=== PATIENT | male | born 1955 | race Two or more races ===

== ENCOUNTER 2017-10-30 00:50 | Inpatient (IN) | payer OTHER ==
[2017-10-30] VITALS (7 sets, daily range): BP systolic 103–127; BP diastolic 68–80
[~2017-10-30] VITALS: Ht 175.3 cm; Wt 136.5 kg
[2017-10-30] MEDS ORDERED: Meclizine 25mg tab ORAL ONE (01:00)
[2017-10-30] MEDS ORDERED: Aspirin Baby 81mg ORAL ONE (02:30)
[2017-10-30 03:06] LABS: BASOPHILS % (AUTO) 0.7 % (0.0-2.0); EOSINOPHILS % (AUTO) 1.6 % (0.0-3.0); HEMATOCRIT 44.6 % (42.0-52.0); LYMPHOCYTES % (AUTO) 14.5 % (20.0-45.0); MEAN CORPUSCULAR VOLUME 90 FL (80-99); MONOCYTES % (AUTO) 4.2 % (1.0-10.0); PLATELET COUNT 207 K/UL (150-450); RED BLOOD COUNT 4.96 M/UL (4.70-6.10); RED CELL DISTRIBUTION WIDTH 11.4 % (11.6-14.8); WHITE BLOOD COUNT 9.7 K/UL (4.8-10.8)
[2017-10-30 03:09] LABS: APPEARANCE,URINE CLEAR; BILIRUBIN, URINE NEGATIVE (NEGATIVE); GLUCOSE, URINE (UA) 4+ (NEGATIVE); KETONES,URINE 2+ (NEGATIVE); LEUKOCYTE ESTERASE ,URINE 1+ (NEGATIVE); NITRITE,URINE NEGATIVE (NEGATIVE); PH,URINE 5 (4.5-8.0); PROTEIN,URINE 2+ (NEGATIVE); UROBILINOGEN,URINE NORMAL MG/DL (0.0-1.0)
[2017-10-30 03:23] LABS: ANION GAP 8 mmol/L (5-15); BLOOD UREA NITROGEN 15 mg/dL (7-18); CALCIUM 9.2 MG/DL (8.5-10.1); CARBON DIOXIDE 27 MMOL/L (21-32); CHLORIDE 102 MMOL/L (98-107); POTASSIUM 4.5 MMOL/L (3.5-5.1); SODIUM 137 MMOL/L (136-145)
[2017-10-30 03:34] LABS: COLOR,URINE YELLOW
[2017-10-30 03:36] LABS: ALANINE AMINOTRANSFERASE 41 U/L (12-78); ALBUMIN 3.5 G/DL (3.4-5.0); ALBUMIN/GLOBULIN RATIO 0.8 (1.0-2.7); ALKALINE PHOSPHATASE 88 U/L (46-116); ASPARTATE AMINO TRANSFERASE 28 U/L (15-37); BILIRUBIN,TOTAL 0.4 MG/DL (0.2-1.0)
--- NOTE | 2017-10-30 04:58 | Emergency Room Report ---
History of Present Illness General Chief Complaint: Dizziness Source: Patient Present Illness HPI The patient is a 62-year-old male who presented after increased dizziness as well as spinning sensation. Patient reports having increased sense of movement which he describes as a moving worse with movements. The patient denies any difficulty with speech. He any numbness or tingling. Patient prior history of diabetes. He had previously taken meclizine without any improvement prior to arrival. The patient was brought in by EMS. He was noted to be severely nauseated. Patient stated he had episodes in the past however this was worse. Allergies: Coded Allergies: No Known Allergies (Unverified , 10/30/17) Patient History Past Medical History: see triage record Reviewed Nursing Documentation: PMH: Agreed; PSxH: Agreed Review of Systems All Other Systems: negative except mentioned in HPI Physical Exam Vital Signs Date Time Temp Pulse Resp B/P (MAP) Pulse Ox O2 Delivery O2 Flow Rate FiO2 10/30/17 00:51 98.1 79 18 142/80 98 Room Air 98.1 Sp02 EP Interpretation: reviewed, normal General Appearance: normal inspection, well appearing, no apparent distress, alert, GCS 15 Head: atraumatic ENT: normal ENT inspection, hearing grossly normal, normal voice Neck: normal inspection, full range of motion, supple, no bony tend Respiratory: normal inspection, lungs clear, normal breath sounds, no respiratory distress, no retraction, no wheezing Cardiovascular #1: regular rate, rhythm, no edema Gastrointestinal: normal inspection, normal bowel sounds, non tender, soft, no guarding, no hernia Genitourinary: no CVA tenderness Musculoskeletal: normal inspection, back normal, normal range of motion Neurologic: normal inspection, alert, oriented x3, responsive, 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 Differential diagnosis included was not limited to CVA, vertebrobasilar insufficiency, myocardial infarction, benign positional vertigo, labyrinthitis, aspirin overdose among others. Because of complexity of patient's case laboratory testing and imaging studies were ordered. The patient was given IV Zofran with some improvement in his nausea however patient continued to be having vertiginous sensation after meclizine. A CT of the head read by radiology showed no evidence of acute CVA. The patient was given aspirin due to the right-sided passpointing. The patient was noted to have continued unsteadiness. The patient will be admitted for further evaluation of the dizziness.Dr. Christopher Milelr was contacted for inpatient management due to panel physician Labs Test 10/30/17 02:40 10/30/17 02:52 White Blood Count 9.7 K/UL (4.8-10.8) Red Blood Count 4.96 M/UL (4.70-6.10) Hemoglobin 15.0 G/DL (14.2-18.0) Hematocrit 44.6 % (42.0-52.0) Mean Corpuscular Volume 90 FL (80-99) Mean Corpuscular Hemoglobin 30.3 PG (27.0-31.0) Mean Corpuscular Hemoglobin Concent 33.7 G/DL (32.0-36.0) Red Cell Distribution Width 11.4 % (11.6-14.8) Platelet Count 207 K/UL (150-450) Mean Platelet Volume 8.6 FL (6.5-10.1) Neutrophils (%) (Auto) 79.0 % (45.0-75.0) Lymphocytes (%) (Auto) 14.5 % (20.0-45.0) Monocytes (%) (Auto) 4.2 % (1.0-10.0) Eosinophils (%) (Auto) 1.6 % (0.0-3.0) Basophils (%) (Auto) 0.7 % (0.0-2.0) Sodium Level 137 MMOL/L (136-145) Potassium Level 4.5 MMOL/L (3.5-5.1) Chloride Level 102 MMOL/L (98-107) Carbon Dioxide Level 27 MMOL/L (21-32) Anion Gap 8 mmol/L (5-15) Blood Urea Nitrogen 15 mg/dL (7-18) Creatinine 1.0 MG/DL (0.55-1.30) Estimat Glomerular Filtration Rate > 60 mL/min (>60) Glucose Level 294 MG/DL (74-106) Calcium Level 9.2 MG/DL (8.5-10.1) Total Bilirubin 0.4 MG/DL (0.2-1.0) Aspartate Amino Transf (AST/SGOT) 28 U/L (15-37) Alanine Aminotransferase (ALT/SGPT) 41 U/L (12-78) Alkaline Phosphatase 88 U/L (46-116) Troponin I 0.000 ng/mL (0.000-0.056) Total Protein 8.0 G/DL (6.4-8.2) Albumin 3.5 G/DL (3.4-5.0) Globulin 4.5 g/dL Albumin/Globulin Ratio 0.8 (1.0-2.7) Thyroid Stimulating Hormone (TSH) 2.349 uiU/mL (0.358-3.740) Urine Color Yellow Urine Appearance Clear Urine pH 5 (4.5-8.0) Urine Specific [place] 1.030 (1.005-1.035) Urine Protein 2+ (NEGATIVE) Urine Glucose (UA) 4+ (NEGATIVE) Urine Ketones 2+ (NEGATIVE) Urine Occult Blood Negative (NEGATIVE) Urine Nitrite Negative (NEGATIVE) Urine Bilirubin Negative (NEGATIVE) Urine Urobilinogen Normal MG/DL (0.0-1.0) Urine Leukocyte Esterase 1+ (NEGATIVE) Urine RBC 0 /HPF (0 - 0) Urine WBC 2-4 /HPF (0 - 0) Urine Squamous Epithelial Cells Few /LPF (NONE/OCC) Urine Bacteria Few /HPF (NONE) Last Vital Signs Date Time Temp Pulse Resp B/P (MAP) Pulse Ox O2 Delivery O2 Flow Rate FiO2 10/30/17 00:51 98.1 79 18 142/80 98 Room Air 98.1 Status: unchanged Disposition: ADMITTED INPATIENT Condition: Serious Scripts Unable to Obtain Active Prescriptions or Reported Meds Departure Forms: Return to Work Return to Work in (Days): 1 Mg Carpenter MD Oct 30, 2017 04:58
[2017-10-30] MEDS ORDERED: Albuterol/Ipratropium 3ml neb HHN PRN (07:30)
[2017-10-30] MEDS ORDERED: Promethazine/Codeine 5ml UD ORAL PRN (07:30)
[2017-10-30] MEDS ORDERED: Nitroglycerin Subl 0.4mg tab SL PRN (07:30)
[2017-10-30] MEDS ORDERED: Mylanta II UD 30ml ORAL PRN (07:30)
[2017-10-30] MEDS ORDERED: Miralax 17gm pkt ORAL PRN (07:30)
[2017-10-30] MEDS ORDERED: LORazepam Inj 2mg/ml 1ml IV PRN (07:30)
--- NOTE | 2017-10-30 09:23 | Diagnostic Imaging Report ---
Indication: Dizziness Technique: Contiguous 5 mm thick transaxial imaging of the head obtained in a Siemens Sensation [address] scanner. Soft tissue and bone windows generated. Automatic Exposure Control was utilized. Total Dose length Product (DLP): 1362.[address] Dose Index Volume (CTDIvol): 70.38 mGy Comparison: none Findings: The size and configuration of the cortical sulci, basal cisterns, and ventricles are within normal limits for age. There is no mass effect, midline shift, or edema identified. There is no evidence of acute hemorrhage or abnormal intra-axial or extra-axial fluid collections. The bones and soft tissues are unremarkable. Impression: No mass effect, edema or acute bleed. [facility] has communicated the preliminary results to the Emergency Department. Their findings are largely concordant with this report. The CT scanner at [facility] is accredited by the [employer] and the scans are performed using dose optimization techniques as appropriate to a performed exam including Automatic Exposure control.
[2017-10-30] MEDS: D5 1/2NS 1,000 ML IV SCH (10:00)
[2017-10-30] MEDS: Heparin 5000 units/ml inj SUBQ SCH ×2 (10:02→22:08)
--- NOTE | 2017-10-30 13:20 | Consultation ---
History of Present Illness General Date patient seen: Oct 30, 2017 Chief Complaint: Dizziness Present Illness HPI 62-year-old male with hx of diabetes presented after increased dizziness as well as spinning sensation. Patient reports having increased sense of movement which he describes as a moving worse with movements. The patient denies any difficulty with speech. He had previously taken meclizine without any improvement prior to arrival. The patient was brought in by EMS. He was noted to be severely nauseated. Allergies: Coded Allergies: No Known Allergies (Unverified , 10/30/17) Medication History Unable to Obtain Active Prescriptions or Reported Meds Patient History Healthcare decision maker Resuscitation status Advanced Directive on File Past Medical/Surgical History Past Medical/Surgical History: (1) Diabetes Review of Systems All Other Systems: negative except mentioned in HPI Physical Exam General Appearance: WD/WN, no apparent distress Lines, tubes and drains: peripheral HEENT: normocephalic, atraumatic Neck: non-tender, normal alignment Respiratory/Chest: chest wall non-tender, lungs clear Breasts: no masses Cardiovascular/Chest: normal peripheral pulses, no JVD Abdomen: normal bowel sounds Last 24 Hour Vital Signs Date Time Temp Pulse Resp B/P (MAP) Pulse Ox O2 Delivery O2 Flow Rate FiO2 10/30/17 09:47 75 20 Room Air 21 10/30/17 06:30 97.2 69 20 117/80 96 Room Air 97.2 10/30/17 06:00 98.2 68 23 103/69 97 Room Air 98.2 10/30/17 05:30 98.2 68 23 103/69 97 Room Air 98.2 10/30/17 04:56 98.2 69 16 110/71 98 Room Air 98.2 10/30/17 00:51 98.1 79 18 142/80 98 Room Air 98.1 Intake and Output 10/29/17 10/30/17 19:00 07:00 Intake Total 60 ml Balance 60 ml Intake Oral 60 ml # Voids 1 # Bowel Movements 1 Laboratory Tests Test 10/30/17 02:40 10/30/17 02:52 White Blood Count 9.7 K/UL (4.8-10.8) Red Blood Count 4.96 M/UL (4.70-6.10) Hemoglobin 15.0 G/DL (14.2-18.0) Hematocrit 44.6 % (42.0-52.0) Mean Corpuscular Volume 90 FL (80-99) Mean Corpuscular Hemoglobin 30.3 PG (27.0-31.0) Mean Corpuscular Hemoglobin Concent 33.7 G/DL (32.0-36.0) Red Cell Distribution Width 11.4 % (11.6-14.8) L Platelet Count 207 K/UL (150-450) Mean Platelet Volume 8.6 FL (6.5-10.1) Neutrophils (%) (Auto) 79.0 % (45.0-75.0) H Lymphocytes (%) (Auto) 14.5 % (20.0-45.0) L Monocytes (%) (Auto) 4.2 % (1.0-10.0) Eosinophils (%) (Auto) 1.6 % (0.0-3.0) Basophils (%) (Auto) 0.7 % (0.0-2.0) Sodium Level 137 MMOL/L (136-145) Potassium Level 4.5 MMOL/L (3.5-5.1) Chloride Level 102 MMOL/L (98-107) Carbon Dioxide Level 27 MMOL/L (21-32) Anion Gap 8 mmol/L (5-15) Blood Urea Nitrogen 15 mg/dL (7-18) Creatinine 1.0 MG/DL (0.55-1.30) Estimat Glomerular Filtration Rate > 60 mL/min (>60) Glucose Level 294 MG/DL (74-106) H Calcium Level 9.2 MG/DL (8.5-10.1) Total Bilirubin 0.4 MG/DL (0.2-1.0) Aspartate Amino Transf (AST/SGOT) 28 U/L (15-37) Alanine Aminotransferase (ALT/SGPT) 41 U/L (12-78) Alkaline Phosphatase 88 U/L (46-116) Troponin I 0.000 ng/mL (0.000-0.056) Total Protein 8.0 G/DL (6.4-8.2) Albumin 3.5 G/DL (3.4-5.0) Globulin 4.5 g/dL Albumin/Globulin Ratio 0.8 (1.0-2.7) L Thyroid Stimulating Hormone (TSH) 2.349 uiU/mL (0.358-3.740) Urine Color Yellow Urine Appearance Clear Urine pH 5 (4.5-8.0) Urine Specific [place] 1.030 (1.005-1.035) Urine Protein 2+ (NEGATIVE) H Urine Glucose (UA) 4+ (NEGATIVE) H Urine Ketones 2+ (NEGATIVE) H Urine Occult Blood Negative (NEGATIVE) Urine Nitrite Negative (NEGATIVE) Urine Bilirubin Negative (NEGATIVE) Urine Urobilinogen Normal MG/DL (0.0-1.0) Urine Leukocyte Esterase 1+ (NEGATIVE) H Urine RBC 0 /HPF (0 - 0) Urine WBC 2-4 /HPF (0 - 0) Urine Squamous Epithelial Cells Few /LPF (NONE/OCC) Urine Bacteria Few /HPF (NONE) Height (Feet): 5 Height (Inches): 9.00 Weight (Pounds): 240 Medications Current Medications Medications (Trade) Dose Ordered Sig/Uday Route PRN Reason Start Time Stop Time Status Last Admin Dose Admin Acetaminophen (Tylenol) 650 mg Q4H PRN ORAL fever 10/30/17 07:30 11/29/17 07:29 10/30/17 10:05 Al Hydroxide/Mg Hydroxide (Mylanta II) 30 ml Q6H PRN ORAL dyspepsia 10/30/17 07:30 11/29/17 07:29 Albuterol/ Ipratropium (Albuterol/ Ipratropium) 3 ml EVERY 4 HOURS PRN HHN Shortness of Breath 10/30/17 07:30 11/04/17 07:29 Clonidine HCl (Catapres Tab) 0.1 mg Q4H PRN ORAL For High Blood Pressure 10/30/17 07:30 11/29/17 07:29 Dextrose (Dextrose 50%) 25 ml STAT PRN IV BS 60-69mg/dl 10/30/17 07:45 11/29/17 07:44 Dextrose (Dextrose 50%) 50 ml STAT PRN IV BS less than 60mg/dl 10/30/17 07:30 11/29/17 07:29 Dextrose/Sodium Chloride 1,000 ml @ 50 mls/hr Q20H IV 10/30/17 07:30 11/29/17 07:29 10/30/17 10:00 Heparin Sodium (Porcine) (Heparin 5000 units/ml) 5,000 units EVERY 12 HOURS SUBQ 10/30/17 09:00 11/29/17 08:59 10/30/17 10:02 Lorazepam (Ativan 2mg/ml 1ml) 0.5 mg Q4H PRN IV For Anxiety 10/30/17 07:30 11/06/17 07:29 Meclizine HCl (Antivert) 25 mg Q6H PRN ORAL for dizziness 10/30/17 13:15 11/29/17 13:14 Nitroglycerin (Ntg) 0.4 mg Q5M X 3 DOSES PRN SL Prn Chest Pain 10/30/17 07:30 11/29/17 07:29 Ondansetron HCl (Zofran) 4 mg Q6H PRN IVP Nausea & Vomiting 10/30/17 07:30 11/29/17 07:29 Polyethylene Glycol (Miralax) 17 gm HSPRN PRN ORAL Constipation 10/30/17 07:30 11/29/17 07:29 Promethazine HCl/ Codeine (Phenergan with Codeine) 5 ml Q4H PRN ORAL For Cough 10/30/17 07:30 11/29/17 07:29 Temazepam (Restoril) 15 mg HSPRN PRN ORAL Insomnia 10/30/17 07:30 11/06/17 07:29 Assessment/Plan Problem List: (1) Ataxia ICD Codes: R27.0 - Ataxia, unspecified SNOMED: 02011036 (2) Diabetes ICD Codes: E11.9 - Type 2 diabetes mellitus without complications SNOMED: 78992505 Assessment/Plan close neuro monitoring resume Meclezine MRI brain, pt/ot siding scale diabetic diet. Cristian Mora MD Oct 30, 2017 13:20
[2017-10-30] MEDS: NovoLOG Insulin Flexpen SUBQ SCH ×2 (16:26→22:07)
--- NOTE | 2017-10-30 19:42 | Cardiology Report ---
APPROVED REPORT EXAM: Two-dimensional and M-mode echocardiogram with Doppler and color Doppler. INDICATION LV FUNCTION M-Mode DIMENSIONS IVSd1.5 (0.7-1.1cm)Left Atrium (MM)4.0 (1.6-4.0cm) LVDd5.6 (3.5-5.6cm)Aortic Root3.5 (2.0-3.7cm) PWd1.7 (0.7-1.1cm)Aortic Cusp Exc.1.8 (1.5-2.0cm) IVSs1.8 cm LVDs3.6 (2.5-4.0cm) PWs2.1 cm Technically difficult study due to poor acoustical windows. Normal left ventricular chamber size,probably grossly normal systolic function and wall motion to extent visualized. Left ventricular ejection fraction estimated to be 50 %. No evidence of left ventricular hypertrophy. No evidence of pericardial effusion. All other cardiac chamber sizes are within normal limits. Mildly Focal aortic valve sclerosis with adequate cusp excursion. Mildly Thickened mitral valve leaflets with normal excursion. Mildly Mitral annulus and aortic root calcification. Pulmonic valve not well visualized. Normal tricuspid valve structure. IVC at normal size with physiologic collapse. This study is not adequte for exclusion of cardioembolism A color flow and spectral Doppler study was performed and revealed: No aortic regurgitation. Trace mitral regurgitation. Normal left ventricular diastolic function Mild tricuspid regurgitation. Tricuspid systolic velocities suggests peak right ventricular systolic pressure of 31 mmHg,consistent with mild pulmonary hypertension. No Pulmonic regurgitation present.
[2017-10-30] MEDS ORDERED: MELOXICAM7.5 MG PO (20:16)
[2017-10-30] MEDS ORDERED: OMEGA 3 1,0001 EACH PO (20:16)
[2017-10-30] MEDS ORDERED: METFORMIN HCL500 M1 ORAL (20:16)
[2017-10-30] MEDS ORDERED: LISINOPRIL10 MG ORAL (20:16)
[2017-10-30] MEDS ORDERED: MECLIZINE HCL25 MG ORAL (20:16)
[2017-10-30] MEDS ORDERED: TURMERIC 500 M1 EAC1 PO (20:16)
[2017-10-31] VITALS: BP 130/69
--- NOTE | 2017-10-31 01:30 | History and Physical Report ---
DATE OF ADMISSION: 10/30/2017 CONSULTANTS: 1. Hilton Daily M.D. 2. Cristian Mora M.D. 3. Donal Armando M.D. CHIEF COMPLAINT: Unsteady gait, vertigo and diabetes. BRIEF HISTORY: The patient is a 62-year-old male, who lives at home, presents with unsteady gait, vertigo, room spinning for 1 day, slight nausea, no vomiting, blood sugar in the ER was 294. The patient came, was admitted for above. Currently calm in bed, slightly weak. No complaint. PAST MEDICAL HISTORY: Arthritis, vertigo, and diabetes. PAST SURGICAL HISTORY: Right wrist. MEDICATIONS: Novolin, NovoLog, Antivert, heparin, ipratropium, Zofran, lorazepam, temazepam, dextrose, promethazine, aspirin, Zofran, and meclizine. ALLERGIES: Denies. SOCIAL HISTORY: No smoking. Occasional alcohol. No intravenous drug abuse. FAMILY HISTORY: Noncontributory. REVIEW OF SYSTEMS: No chest pain. Slight short of breath. Slight nausea. No vomiting. No diarrhea. PHYSICAL EXAMINATION: GENERAL: Calm in bed, oriented x3, in no acute distress. VITAL SIGNS: Temperature is 98 degrees, pulse 68, respiratory rate 20 and blood pressure 116/68. CARDIOVASCULAR: No murmur. LUNGS: Distant and clear. ABDOMEN: Positive bowel sounds. Nontender. Nondistended. EXTREMITIES: No cyanosis or edema. NEUROLOGIC: The patient moves all extremities, slightly weak. LABORATORY AND DIAGNOSTIC DATA: CBC is normal. BMP show glucose 294, otherwise BMP is normal. Urinalysis, 2+ ketone, 1+ leukocyte esterase. ASSESSMENT: 1. Vertigo. 2. Unsteady gait. 3. Diabetes. 4. Arthritis. 5. Urinary tract infection. PLAN: 1. Continue previous medications. 2. OT/PT. 3. Dietary evaluation. 4. Blood pressure and blood sugar control. 5. Resume home medications. 6. Antivert p.r.n. 7. Dr. Daily, Dr. Mora, Dr. Armando to evaluate. Discussed with the patient's daughter. There is no neurology available in hospital and offered to transfer. The patient's daughter declined. We requested MRI. Pending MRI results, we will either discharge if stable or transfer p.r.n. We will continue to follow the patient medically. Christopher Miller D.O. DR: PRICILA JOB#: [id number] CC:
[2017-10-31] MEDS: Meclizine 25mg tab ORAL PRN ×2 (02:40→09:38)
[2017-10-31 04:00] VITALS: BP 126/82
[2017-10-31] MEDS: D5 1/2NS 1,000 ML IV SCH (04:04)
[2017-10-31 04:15] LABS: AMMONIA 32 umol/L (11-32)
[2017-10-31 04:24] LABS: ALANINE AMINOTRANSFERASE 37 U/L (12-78); ALBUMIN 3.1 G/DL (3.4-5.0); ALBUMIN/GLOBULIN RATIO 0.8 (1.0-2.7); ALKALINE PHOSPHATASE 74 U/L (46-116); ANION GAP 7 mmol/L (5-15); ASPARTATE AMINO TRANSFERASE 23 U/L (15-37); BILIRUBIN,TOTAL 0.3 MG/DL (0.2-1.0); BLOOD UREA NITROGEN 10 mg/dL (7-18); CARBON DIOXIDE 26 MMOL/L (21-32); CHLORIDE 105 MMOL/L (98-107); CHOLESTEROL 154 MG/DL (< 200); CREATININE 0.8 MG/DL (0.55-1.30); HDL CHOLESTEROL 40 MG/DL (40-60); POTASSIUM 3.7 MMOL/L (3.5-5.1); SODIUM 138 MMOL/L (136-145); TRIGLYCERIDES 153 MG/DL (30-150)
[2017-10-31 04:37] LABS: PHOSPHORUS 3.8 MG/DL (2.5-4.9)
[2017-10-31] MEDS: NovoLOG Insulin Flexpen SUBQ SCH ×4 (06:21→22:18)
[2017-10-31 06:33] LABS: BASOPHILS % (AUTO) 1.2 % (0.0-2.0); HEMATOCRIT 41.6 % (42.0-52.0); HEMOGLOBIN 14.8 G/DL (14.2-18.0); LYMPHOCYTES % (AUTO) 40.7 % (20.0-45.0); MEAN CORPUSCULAR VOLUME 91 FL (80-99); MONOCYTES % (AUTO) 6.4 % (1.0-10.0); NEUTROPHILS % (AUTO) 47.7 % (45.0-75.0); PLATELET COUNT 196 K/UL (150-450); RED BLOOD COUNT 4.59 M/UL (4.70-6.10); RED CELL DISTRIBUTION WIDTH 11.6 % (11.6-14.8); WHITE BLOOD COUNT 6.4 K/UL (4.8-10.8)
[2017-10-31 08:00] VITALS: BP 116/71
[2017-10-31] MEDS: metFORMIN 500mg tab ORAL SCH ×2 (09:34→17:36)
[2017-10-31] MEDS: Lisinopril 10mg tab ORAL SCH (09:34)
[2017-10-31] MEDS: Heparin 5000 units/ml inj SUBQ SCH ×2 (09:37→22:17)
--- NOTE | 2017-10-31 09:39 | General Progress Note ---
Assessment/Plan Problem List: (1) Vertigo ICD Codes: R42 - Dizziness and giddiness SNOMED: 742531814 (2) Diabetes ICD Codes: E11.9 - Type 2 diabetes mellitus without complications SNOMED: 40048520 (3) Ataxia ICD Codes: R27.0 - Ataxia, unspecified SNOMED: 88751821 (4) Dizziness of unknown cause ICD Codes: R42 - Dizziness and giddiness SNOMED: 241890464 Status: unchanged Assessment/Plan ot pt diet antivert cbc bmp am Subjective Constitutional: Reports: weakness Allergies: Coded Allergies: No Known Allergies (Unverified , 10/30/17) All Systems: reviewed and negative except above Subjective feels room still spinning some Objective Last 24 Hour Vital Signs Date Time Temp Pulse Resp B/P (MAP) Pulse Ox O2 Delivery O2 Flow Rate FiO2 10/31/17 09:34 116/71 10/31/17 09:15 74 20 Room Air 21 10/31/17 04:00 98.4 57 22 126/82 99 Room Air 98.4 10/31/17 04:00 62 10/31/17 00:00 56 10/31/17 00:00 97.9 61 20 130/69 96 Room Air 97.9 10/30/17 20:00 77 10/30/17 20:00 98.8 73 20 124/76 96 Room Air 98.8 10/30/17 19:05 71 20 Room Air 21 10/30/17 16:00 54 10/30/17 16:00 97.7 54 20 127/77 94 Room Air 97.7 10/30/17 12:00 60 10/30/17 12:00 98.0 76 20 116/68 96 Room Air 98.0 10/30/17 09:47 75 20 Room Air 21 Intake and Output 10/30/17 10/31/17 19:00 07:00 Intake Total 1050 ml 716.6 ml Balance 1050 ml 716.6 ml Intake Oral 600 ml 120 ml IV Total 450 ml 596.6 ml # Voids 4 # Bowel Movements 1 Laboratory Tests 10/31/17 03:25: Sodium Level 138, Potassium Level 3.7, Chloride Level 105, Carbon Dioxide Level 26, Anion Gap 7, Blood Urea Nitrogen 10, Creatinine 0.8, Estimat Glomerular Filtration Rate > 60, Glucose Level 169#H, Calcium Level 9.0, Phosphorus Level 3.8, Magnesium Level 2.0, Total Bilirubin 0.3, Aspartate Amino Transf (AST/SGOT ) 23, Alanine Aminotransferase (ALT/SGPT) 37, Alkaline Phosphatase 74, Ammonia 32, Total Protein 7.2, Albumin 3.1L, Globulin 4.1, Albumin/Globulin Ratio 0.8L, Triglycerides Level 153H, Cholesterol Level 154, LDL Cholesterol 104H, HDL Cholesterol 40, Cholesterol/HDL Ratio 3.9, Thyroid Stimulating Hormone (TSH) 2.320 10/31/17 06:05: White Blood Count 6.4, Red Blood Count 4.59L, Hemoglobin 14.8, Hematocrit 41.6L , Mean Corpuscular Volume 91, Mean Corpuscular Hemoglobin 32.3H, Mean Corpuscular Hemoglobin Concent 35.6, Red Cell Distribution Width 11.6, Platelet Count 196, Mean Platelet Volume 8.2, Neutrophils (%) (Auto) 47.7, Lymphocytes (% ) (Auto) 40.7, Monocytes (%) (Auto) 6.4, Eosinophils (%) (Auto) 4.0H, Basophils (%) (Auto) 1.2 10/31/17 08:30: Prothrombin Time [Pending], Prothromb Time International Ratio [Pending], Activated Partial Thromboplast Time [Pending] Height (Feet): 5 Height (Inches): 9.00 Weight (Pounds): 301 General Appearance: alert EENT: normal ENT inspection Neck: normal alignment Cardiovascular: normal peripheral pulses, normal rate, regular rhythm Respiratory/Chest: chest wall non-tender, lungs clear, normal breath sounds Abdomen: normal bowel sounds, non tender, soft Extremities: normal inspection Edema: no edema noted Arm (L), no edema noted Arm (R), no edema noted Leg (L), no edema noted Leg (R), no edema noted Pedal (L), no edema noted Pedal (R), no edema noted Generalized Neurologic: responsive, motor weakness Skin: normal pigmentation, warm/dry Christopher Miller DO Oct 31, 2017 09:39
[2017-10-31] MEDS ORDERED: D5 1/2NS 1000ml IV ONE ×2 (10:39→16:21)
[2017-10-31 12:00] VITALS: BP 115/64
[2017-10-31 16:00] VITALS: BP 121/66
--- NOTE | 2017-10-31 18:17 | Cardiology Progress Note ---
Assessment/Plan Assessment/Plan The patient is seen and examined, full consult note will be dictated shortly. Objective Last 24 Hour Vital Signs Date Time Temp Pulse Resp B/P (MAP) Pulse Ox O2 Delivery O2 Flow Rate FiO2 10/31/17 12:00 59 10/31/17 12:00 99.0 59 21 115/64 97 Room Air 99.0 10/31/17 09:34 116/71 10/31/17 09:15 74 20 Room Air 21 10/31/17 08:00 98.2 74 20 116/71 97 Room Air 98.2 10/31/17 08:00 61 10/31/17 04:00 98.4 57 22 126/82 99 Room Air 98.4 10/31/17 04:00 62 10/31/17 00:00 56 10/31/17 00:00 97.9 61 20 130/69 96 Room Air 97.9 10/30/17 20:00 77 10/30/17 20:00 98.8 73 20 124/76 96 Room Air 98.8 10/30/17 19:05 71 20 Room Air 21 Intake and Output 10/30/17 10/31/17 19:00 07:00 Intake Total 1050 ml 716.6 ml Balance 1050 ml 716.6 ml Intake Oral 600 ml 120 ml IV Total 450 ml 596.6 ml # Voids 4 # Bowel Movements 1 Laboratory Tests Test 10/31/17 03:25 10/31/17 06:05 10/31/17 08:30 Sodium Level 138 MMOL/L (136-145) Potassium Level 3.7 MMOL/L (3.5-5.1) Chloride Level 105 MMOL/L (98-107) Carbon Dioxide Level 26 MMOL/L (21-32) Anion Gap 7 mmol/L (5-15) Blood Urea Nitrogen 10 mg/dL (7-18) Creatinine 0.8 MG/DL (0.55-1.30) Estimat Glomerular Filtration Rate > 60 mL/min (>60) Glucose Level 169 MG/DL (74-106) #H Calcium Level 9.0 MG/DL (8.5-10.1) Phosphorus Level 3.8 MG/DL (2.5-4.9) Magnesium Level 2.0 MG/DL (1.8-2.4) Total Bilirubin 0.3 MG/DL (0.2-1.0) Aspartate Amino Transf (AST/SGOT) 23 U/L (15-37) Alanine Aminotransferase (ALT/SGPT) 37 U/L (12-78) Alkaline Phosphatase 74 U/L (46-116) Ammonia 32 umol/L (11-32) Total Protein 7.2 G/DL (6.4-8.2) Albumin 3.1 G/DL (3.4-5.0) L Globulin 4.1 g/dL Albumin/Globulin Ratio 0.8 (1.0-2.7) L Triglycerides Level 153 MG/DL (30-150) H Cholesterol Level 154 MG/DL (< 200) LDL Cholesterol 104 mg/dL (<100) H HDL Cholesterol 40 MG/DL (40-60) Cholesterol/HDL Ratio 3.9 (3.3-4.4) Thyroid Stimulating Hormone (TSH) 2.320 uiU/mL (0.358-3.740) White Blood Count 6.4 K/UL (4.8-10.8) Red Blood Count 4.59 M/UL (4.70-6.10) L Hemoglobin 14.8 G/DL (14.2-18.0) Hematocrit 41.6 % (42.0-52.0) L Mean Corpuscular Volume 91 FL (80-99) Mean Corpuscular Hemoglobin 32.3 PG (27.0-31.0) H Mean Corpuscular Hemoglobin Concent 35.6 G/DL (32.0-36.0) Red Cell Distribution Width 11.6 % (11.6-14.8) Platelet Count 196 K/UL (150-450) Mean Platelet Volume 8.2 FL (6.5-10.1) Neutrophils (%) (Auto) 47.7 % (45.0-75.0) Lymphocytes (%) (Auto) 40.7 % (20.0-45.0) Monocytes (%) (Auto) 6.4 % (1.0-10.0) Eosinophils (%) (Auto) 4.0 % (0.0-3.0) H Basophils (%) (Auto) 1.2 % (0.0-2.0) Prothrombin Time 10.9 SEC (9.30-11.50) Prothromb Time International Ratio 1.0 (0.9-1.1) Activated Partial Thromboplast Time 27 SEC (23-33) Hilton Daily MD Oct 31, 2017 18:17
[2017-10-31 20:00] VITALS: BP 114/71
[2017-11-01] VITALS: BP 103/65
[2017-11-01] MEDS: D5 1/2NS 1,000 ML IV SCH (01:47)
[2017-11-01 04:00] VITALS: BP 96/67
[2017-11-01] MEDS: NovoLOG Insulin Flexpen SUBQ SCH ×4 (07:00→21:50)
[2017-11-01 07:15] LABS: BASOPHILS % (AUTO) 1.2 % (0.0-2.0); EOSINOPHILS % (AUTO) 3.7 % (0.0-3.0); HEMATOCRIT 42.2 % (42.0-52.0); HEMOGLOBIN 14.8 G/DL (14.2-18.0); LYMPHOCYTES % (AUTO) 36.4 % (20.0-45.0); MEAN CORPUSCULAR VOLUME 91 FL (80-99); NEUTROPHILS % (AUTO) 51.7 % (45.0-75.0); PLATELET COUNT 200 K/UL (150-450); RED BLOOD COUNT 4.65 M/UL (4.70-6.10); RED CELL DISTRIBUTION WIDTH 11.5 % (11.6-14.8); WHITE BLOOD COUNT 6.1 K/UL (4.8-10.8)
[2017-11-01 08:00] VITALS: BP 101/65
--- NOTE | 2017-11-01 08:41 | General Progress Note ---
Assessment/Plan Problem List: (1) Vertigo ICD Codes: R42 - Dizziness and giddiness SNOMED: 611026179 (2) Diabetes ICD Codes: E11.9 - Type 2 diabetes mellitus without complications SNOMED: 47307758 (3) Ataxia ICD Codes: R27.0 - Ataxia, unspecified SNOMED: 94251688 (4) Dizziness of unknown cause ICD Codes: R42 - Dizziness and giddiness SNOMED: 993286152 Status: stable, progressing Assessment/Plan ot pt diet antivert cardio f/u cbc bmp am Subjective Constitutional: Reports: weakness Allergies: Coded Allergies: No Known Allergies (Unverified , 10/30/17) All Systems: reviewed and negative except above Subjective feels room still spinning some Objective Last 24 Hour Vital Signs Date Time Temp Pulse Resp B/P (MAP) Pulse Ox O2 Delivery O2 Flow Rate FiO2 11/01/17 04:00 98.4 70 20 96/67 96 Room Air 98.4 11/01/17 04:00 67 11/01/17 00:00 58 11/01/17 00:00 98.1 72 20 103/65 96 Room Air 98.1 10/31/17 20:20 67 20 Room Air 21 10/31/17 20:00 62 10/31/17 20:00 101.5 75 22 114/71 95 Room Air 101.5 10/31/17 16:00 79 10/31/17 16:00 98.7 75 22 121/66 97 Room Air 98.7 10/31/17 12:00 59 10/31/17 12:00 99.0 59 21 115/64 97 Room Air 99.0 10/31/17 09:34 116/71 10/31/17 09:15 74 20 Room Air 21 Intake and Output 10/31/17 11/01/17 19:00 07:00 Intake Total 480 ml Balance 480 ml Intake Oral 480 ml # Voids 1 Laboratory Tests 11/01/17 05:40: White Blood Count 6.1, Red Blood Count 4.65L, Hemoglobin 14.8, Hematocrit 42.2, Mean Corpuscular Volume 91, Mean Corpuscular Hemoglobin 31.8H, Mean Corpuscular Hemoglobin Concent 35.0, Red Cell Distribution Width 11.5L, Platelet Count 200, Mean Platelet Volume 8.8, Neutrophils (%) (Auto) 51.7, Lymphocytes (%) (Auto) 36.4, Monocytes (%) (Auto) 7.0, Eosinophils (%) (Auto) 3.7H, Basophils (%) (Auto ) 1.2, Sodium Level [Pending], Potassium Level [Pending], Chloride Level [ Pending], Carbon Dioxide Level [Pending], Blood Urea Nitrogen [Pending], Creatinine [Pending], Estimat Glomerular Filtration Rate [Pending], Glucose Level [Pending], Calcium Level [Pending] Height (Feet): 5 Height (Inches): 9.00 Weight (Pounds): 301 General Appearance: alert EENT: normal ENT inspection Neck: normal alignment Cardiovascular: normal peripheral pulses, normal rate, regular rhythm Respiratory/Chest: chest wall non-tender, lungs clear, normal breath sounds Abdomen: normal bowel sounds, non tender, soft Extremities: normal inspection Edema: no edema noted Arm (L), no edema noted Arm (R), no edema noted Leg (L), no edema noted Leg (R), no edema noted Pedal (L), no edema noted Pedal (R), no edema noted Generalized Neurologic: responsive, motor weakness Skin: normal pigmentation, warm/dry Christopher Miller DO Nov 01, 2017 08:41
[2017-11-01 09:00] LABS: ANION GAP 7 mmol/L (5-15); BLOOD UREA NITROGEN 10 mg/dL (7-18); CALCIUM 8.9 MG/DL (8.5-10.1); CARBON DIOXIDE 28 MMOL/L (21-32); CHLORIDE 104 MMOL/L (98-107); POTASSIUM 3.9 MMOL/L (3.5-5.1); SODIUM 139 MMOL/L (136-145)
[2017-11-01] MEDS: Lisinopril 10mg tab ORAL SCH (09:00)
[2017-11-01] MEDS: metFORMIN 500mg tab ORAL SCH ×2 (09:26→18:07)
[2017-11-01] MEDS: Heparin 5000 units/ml inj SUBQ SCH ×2 (09:28→21:52)
[2017-11-01 12:00] VITALS: BP 122/74
--- NOTE | 2017-11-01 13:08 | Consultation ---
Consult Note Consult Note [id number] Dustin Childs MD Nov 01, 2017 13:08
[2017-11-01 16:00] VITALS: BP 138/77
[2017-11-01] MEDS: Meclizine 25mg tab ORAL PRN ×2 (16:19→21:45)
--- NOTE | 2017-11-01 17:32 | Cardiology Progress Note ---
Assessment/Plan Assessment/Plan 1. Presyncope, cardiac work-up has been negative, normal EF, consider hydration. 2. DM, continue ASA and atorvastatin. 3. Dyslipidemia, will start with atorvastatin. 4. HTN, optimize lisinopril. Subjective Subjective Sinus rhythm at 74. Objective Last 24 Hour Vital Signs Date Time Temp Pulse Resp B/P (MAP) Pulse Ox O2 Delivery O2 Flow Rate FiO2 11/01/17 16:00 97.5 84 20 138/77 98 Room Air 97.5 11/01/17 12:00 97.3 74 18 122/74 96 Room Air 97.3 11/01/17 09:10 63 18 Room Air 21 11/01/17 09:00 101/65 11/01/17 08:00 97.2 67 18 101/65 95 Room Air 97.2 11/01/17 08:00 61 11/01/17 04:00 98.4 70 20 96/67 96 Room Air 98.4 11/01/17 04:00 67 11/01/17 00:00 58 11/01/17 00:00 98.1 72 20 103/65 96 Room Air 98.1 10/31/17 20:20 67 20 Room Air 21 10/31/17 20:00 62 10/31/17 20:00 101.5 75 22 114/71 95 Room Air 101.5 Intake and Output 10/31/17 11/01/17 19:00 07:00 Intake Total 480 ml 165 ml Balance 480 ml 165 ml Intake Oral 480 ml IV Total 165 ml # Voids 1 2D Echo: EF 65%, Mild TR, RVSP 31 mmHg Laboratory Tests Test 11/01/17 05:40 White Blood Count 6.1 K/UL (4.8-10.8) Red Blood Count 4.65 M/UL (4.70-6.10) L Hemoglobin 14.8 G/DL (14.2-18.0) Hematocrit 42.2 % (42.0-52.0) Mean Corpuscular Volume 91 FL (80-99) Mean Corpuscular Hemoglobin 31.8 PG (27.0-31.0) H Mean Corpuscular Hemoglobin Concent 35.0 G/DL (32.0-36.0) Red Cell Distribution Width 11.5 % (11.6-14.8) L Platelet Count 200 K/UL (150-450) Mean Platelet Volume 8.8 FL (6.5-10.1) Neutrophils (%) (Auto) 51.7 % (45.0-75.0) Lymphocytes (%) (Auto) 36.4 % (20.0-45.0) Monocytes (%) (Auto) 7.0 % (1.0-10.0) Eosinophils (%) (Auto) 3.7 % (0.0-3.0) H Basophils (%) (Auto) 1.2 % (0.0-2.0) Sodium Level 139 MMOL/L (136-145) Potassium Level 3.9 MMOL/L (3.5-5.1) Chloride Level 104 MMOL/L (98-107) Carbon Dioxide Level 28 MMOL/L (21-32) Anion Gap 7 mmol/L (5-15) Blood Urea Nitrogen 10 mg/dL (7-18) Creatinine 1.0 MG/DL (0.55-1.30) Estimat Glomerular Filtration Rate > 60 mL/min (>60) Glucose Level 159 MG/DL (74-106) H Calcium Level 8.9 MG/DL (8.5-10.1) Objective General Appearance: normal inspection, well appearing, no apparent distress, alert, GCS 15 Head: atraumatic, normocephalic, PERRLA, EOMI. Neck: Negative JVD Respiratory: normal inspection, lungs clear, normal breath sounds, no respiratory distress, no retraction, no wheezing Cardiovascular: regular rate, rhythm, no murmurs, gallops or rubs. Gastrointestinal: normal inspection, normal bowel sounds, non tender, soft, no guarding, no hernia Genitourinary: no CVA tenderness Musculoskeletal: no edema, clubbing or cyanosis. Neurologic: normal inspection, alert, oriented x3, responsive, wardrobe specialist III-XII nml as tested, speech normal, other - abnormal finger to nose Psychiatric: normal inspection, judgement/insight normal, mood/affect normal Skin: normal inspection, normal color, no rash Hilton Daily MD Nov 01, 2017 17:32
[2017-11-01] MEDS ORDERED: Aspirin EC 81mg tab ORAL SCH (18:00)
--- NOTE | 2017-11-01 19:00 | Consultation ---
DATE OF CONSULTATION: 10/31/2017 CARDIOLOGY CONSULTATION CONSULTING PHYSICIAN: Hilton Daily M.D. REFERRING PHYSICIAN: Christopher Miller D.O. REASON FOR CONSULTATION: Management of presyncope. HISTORY OF PRESENT ILLNESS: The patient is an very unfortunate 62-year-old gentleman who presents to the hospital with increased dizziness, vertigo and nausea. He did not have any signs of lateralization, numbness, tingling. At the time of arrival to the hospital, blood pressure was 142/80 mmHg and heart rate of 79. CT of head showed no evidence of acute CVA. The patient was admitted to telemetry for further evaluation and management. Cardiology consultation was made to evaluate possible cardiac etiology for this presyncope. According to the patient, there has not been any complaint of palpitation. The patient denies any prior history of coronary artery disease, congestive heart failure, or cardiac arrhythmias. A 12-lead electrocardiogram at the time of arrival to the hospital showed no acute ST and T-wave abnormalities. In fact, he had 2D echocardiography done which revealed normal LV systolic function with LVEF of about 65%, mild tricuspid regurgitation with right ventricular systolic pressure of 31 mmHg. PAST MEDICAL HISTORY: Diabetes/prediabetes, hypertension, history of vertigo in the past. MEDICATIONS: List of medications at home, lisinopril 10 mg p.o. daily, meclizine 25 mg q.6 hours p.r.n. dizziness, meloxicam 7.5 mg q.12 p.r.n. pain, metformin 500 mg twice daily, [place]-3 Ethyl Esters 1000 mg twic daily, turmeric 500 mg capsule twice a day. ALLERGIES: No known drug allergies. SOCIAL HISTORY: Denies any tobacco, alcohol, or illicit drug use. PAST SURGICAL HISTORY: None. FAMILY HISTORY: No premature coronary artery disease or arrhythmogenic in the first-degree relatives. REVIEW OF SYSTEMS: A 12-system review done is essentially negative except what is mentioned in the history of present illness. PHYSICAL EXAMINATION: VITAL SIGNS: Blood pressure at time of arrival to the hospital was 142/80, pulse of 79, respirations 18, temperature 98.1 degrees Fahrenheit, and O2 saturation 98% on room air. GENERAL: The patient is a very unfortunate 62-year-old gentleman, in no apparent respiratory distress. Alert and oriented x4. HEENT: Atraumatic and normocephalic. Anicteric. Pupils are equal, round, and reactive to light and accommodation. Extraocular muscles intact. NECK: JVP is less than 5 cm. No carotid bruits. Carotid upstrokes 2+ bilaterally. CARDIOVASCULAR: Normal S1 and S2. Regular rate and rhythm. No murmurs, gallops, or rubs. LUNGS: Clear to auscultation bilaterally. ABDOMEN: Soft, nontender, and nondistended. No hepatosplenomegaly. Positive bowel sounds. EXTREMITIES: No evidence of edema, clubbing, or cyanosis. LABORATORY FINDINGS: WBC was 9.7, hemoglobin of 15.0, hematocrit 44.6, and platelet count 207. Chemistry showed sodium 137, potassium 4.5, chloride 102, bicarbonate 27, BUN of 15, creatinine 1.0, and glucose is 294. Calcium is 9.2. Troponin I was 0.00. Hemoglobin A1c of 8.6. Triglyceride 153, cholesterol 154, LDL of 104, HDL of 40. ASSESSMENT: The patient is a very unfortunate 62-year-old gentleman, seen in Cardiology consultation at request of Dr Miller. 1. Presyncope this is most likely a vertigo, Neurology follow up. From the cardiac standpoint, a 2D echocardiography shows normal LV systolic function with LVEF of approximately 65%. Laboratory does not a reveal any evidence of hypokalemia although he is diabetic with uncontrolled hyperglycemia and may have dizziness due to orthostatic changes due to autonomic neuropathy or at some point hypovolemia due to osmosis diuresis due to hyperglycemia. 2. A 12-lead electrocardiogram also shows no ECG changes. Troponin I level is within normal limits. 3. Dyslipidemia. I will suggest atorvastatin, goal of LDL less than 100. 4. Diabetes mellitus. Uncontrolled hyperglycemia. Aspirin and statin recommended. 5. History of hypertension. I would consider optimizing lisinopril for goal of blood pressure 130/80 mmHg. I would like to thank, Dr. Miller, for the courtesy of this consultation. Hilton Daily M.D. DR: Lizette JOB#: [id number] CC:
[2017-11-01 20:00] VITALS: BP 125/70
[2017-11-01] MEDS ORDERED: Atorvastatin 20mg tab ORAL SCH (21:00)
--- NOTE | 2017-11-01 23:45 | Consultation ---
DATE OF CONSULTATION: 11/01/2017 INFECTIOUS DISEASE CONSULTATION CONSULTING PHYSICIAN: Dustin Childs M.D. REFERRING PHYSICIAN: Christopher Miller D.O. REASON FOR CONSULTATION: Evaluation of the patient for fever, antibiotic management. HISTORY OF PRESENT ILLNESS: The patient is a 62-year-old male with multiple medical problems as listed below, who was admitted to this medical center because of onset of vertigo, dizziness, and ataxia. The patient also had ringing sensation in the right ear for one day. No nausea, vomiting, diarrhea, earache, runny nose, or sore throat. No history of viral infection in the family. The patient spiked fever of 101.5 yesterday. Infectious Disease consultation has been requested for further evaluation of the patient and antibiotic management. The patient developed some tenderness at the IV site over the right hand. As a result, IV was removed. PAST MEDICAL HISTORY: 1. Diabetes. 2. Right wrist surgery. 3. Obesity. ALLERGIES: No known drug allergies. MEDICATIONS: Off of antibiotics. SOCIAL HISTORY: The patient lives with the family. No alcohol or drug abuse. REVIEW OF SYSTEMS: A 10-point review was done, except what was mentioned above has been negative. PHYSICAL EXAMINATION: VITAL SIGNS: Temperature 97, blood pressure 101/65, pulse 67, respiratory rate 18, and T-max 101.7. HEENT: No pale conjunctivae. No icterus. NECK: No lymphadenopathy. CHEST: Clear. HEART: S1 and S2. ABDOMEN: Soft, nontender. EXTREMITIES: No cyanosis at this time. NEUROLOGIC: Awake. LABORATORY AND DIAGNOSTIC DATA: White blood cells 6, hemoglobin 14, and platelets 200. UA unremarkable. BUN 10, creatinine 1. Liver function tests are unremarkable. Head CT, no acute events. Echo, ejection fraction 50%. ASSESSMENT: The patient is a 62-year-old male, who came to the hospital afebrile, now has: 1. Fever (most likely due to IV site phlebitis). 2. Rule out bacteremia as a result of IV site phlebitis. 3. Normal white blood cells. 4. Ataxia/vertigo ? vestibular neuritis (no evidence of viral infections such as herpes zoster at this point). PLAN: 1. We will monitor the patient off of antibiotics and we will send blood culture. 2. If the patient spikes fever, we will start the patient on IV vancomycin. 3. We will . 4. Cardiology is following. Thank you, Dr. Miller, for allowing me to participate in the care of this patient. I will follow the patient with you during this hospitalization. Dustin Childs M.D. DR: Reva JOB#: [id number] CC:
[2017-11-02] VITALS: BP 131/66
[2017-11-02 04:00] VITALS: BP 129/78
[2017-11-02] MEDS: Meclizine 25mg tab ORAL PRN ×2 (06:03→13:43)
[2017-11-02] MEDS: NovoLOG Insulin Flexpen SUBQ SCH ×3 (06:04→16:36)
[2017-11-02 08:00] VITALS: BP 122/77
[2017-11-02 08:08] LABS: BASOPHILS % (AUTO) 0.8 % (0.0-2.0); EOSINOPHILS % (AUTO) 3.2 % (0.0-3.0); HEMATOCRIT 45.9 % (42.0-52.0); HEMOGLOBIN 15.6 G/DL (14.2-18.0); LYMPHOCYTES % (AUTO) 36.5 % (20.0-45.0); MEAN CORPUSCULAR VOLUME 90 FL (80-99); MONOCYTES % (AUTO) 7.8 % (1.0-10.0); NEUTROPHILS % (AUTO) 51.7 % (45.0-75.0); PLATELET COUNT 219 K/UL (150-450); RED BLOOD COUNT 5.09 M/UL (4.70-6.10); RED CELL DISTRIBUTION WIDTH 11.3 % (11.6-14.8); WHITE BLOOD COUNT 7.5 K/UL (4.8-10.8)
[2017-11-02] MEDS: Lisinopril 10mg tab ORAL SCH (08:21)
[2017-11-02] MEDS: metFORMIN 500mg tab ORAL SCH ×2 (08:22→18:00)
[2017-11-02] MEDS: Heparin 5000 units/ml inj SUBQ SCH (08:23)
[2017-11-02 08:43] LABS: ANION GAP 9 mmol/L (5-15); BLOOD UREA NITROGEN 10 mg/dL (7-18); CALCIUM 9.3 MG/DL (8.5-10.1); CARBON DIOXIDE 26 MMOL/L (21-32); CHLORIDE 103 MMOL/L (98-107); CREATININE 0.8 MG/DL (0.55-1.30); POTASSIUM 3.7 MMOL/L (3.5-5.1); SODIUM 138 MMOL/L (136-145)
[2017-11-02] MEDS ORDERED: Aspirin EC 81mg tab ORAL SCH (09:00)
--- NOTE | 2017-11-02 10:20 | Infectious Diseases Prog Note ---
Assessment/Plan Assessment/Plan ASSESSMENT: The patient is a 62-year-old male, who came to the hospital afebrile, now has: 1. Fever (most likely due to IV site phlebitis), SP 2. Normal white blood cells. 3. Ataxia/vertigo ? vestibular neuritis (no evidence of viral infections such as herpes zoster at this point). -CT head: No mass effect, edema or acute bleed. Diabetes. . Right wrist surgery. Obesity. PLAN: 1. We will monitor the patient off of antibiotics unless febrile, increasing leukocytosis and/or HD unstable 2. If the patient spikes fever, obtain 2 sets of Bcx and start IV Vancomycin 3. Neuro, cards eval 4. Aspiration precautions Thank you, Dr. Miller, for allowing me to participate in the care of this patient. I will follow the patient with you during this hospitalization. Subjective Allergies: Coded Allergies: No Known Allergies (Unverified , 10/30/17) Subjective afebrile 36hrs no [id number] bcx were cancelled (?why) off abx Objective Vital Signs Last 24 Hour Vital Signs Date Time Temp Pulse Resp B/P (MAP) Pulse Ox O2 Delivery O2 Flow Rate FiO2 11/02/17 08:21 122/77 11/02/17 04:00 97.5 66 19 129/78 98 Room Air 97.5 11/02/17 03:41 60 11/02/17 00:00 98.1 72 22 131/66 98 Room Air 98.1 11/02/17 00:00 61 11/01/17 20:00 96.6 78 20 125/70 98 Room Air 96.6 11/01/17 19:30 79 11/01/17 19:02 71 18 Room Air 21 11/01/17 16:00 97.5 84 20 138/77 98 Room Air 97.5 11/01/17 16:00 83 11/01/17 12:00 97.3 74 18 122/74 96 Room Air 97.3 11/01/17 12:00 71 Height (Feet): 5 Height (Inches): 9.00 Weight (Pounds): 301 Objective HEENT: No pale conjunctivae. No icterus. NECK: No lymphadenopathy. CHEST: Clear. HEART: S1 and S2. ABDOMEN: Soft, nontender. EXTREMITIES: No cyanosis at this time.Right hand noted w/ decreased swelling, no redness NEUROLOGIC: Awake. Laboratory Tests Test 11/02/17 06:50 White Blood Count 7.5 K/UL (4.8-10.8) Red Blood Count 5.09 M/UL (4.70-6.10) Hemoglobin 15.6 G/DL (14.2-18.0) Hematocrit 45.9 % (42.0-52.0) Mean Corpuscular Volume 90 FL (80-99) Mean Corpuscular Hemoglobin 30.6 PG (27.0-31.0) Mean Corpuscular Hemoglobin Concent 34.0 G/DL (32.0-36.0) Red Cell Distribution Width 11.3 % (11.6-14.8) L Platelet Count 219 K/UL (150-450) Mean Platelet Volume 8.5 FL (6.5-10.1) Neutrophils (%) (Auto) 51.7 % (45.0-75.0) Lymphocytes (%) (Auto) 36.5 % (20.0-45.0) Monocytes (%) (Auto) 7.8 % (1.0-10.0) Eosinophils (%) (Auto) 3.2 % (0.0-3.0) H Basophils (%) (Auto) 0.8 % (0.0-2.0) Sodium Level 138 MMOL/L (136-145) Potassium Level 3.7 MMOL/L (3.5-5.1) Chloride Level 103 MMOL/L (98-107) Carbon Dioxide Level 26 MMOL/L (21-32) Anion Gap 9 mmol/L (5-15) Blood Urea Nitrogen 10 mg/dL (7-18) Creatinine 0.8 MG/DL (0.55-1.30) Estimat Glomerular Filtration Rate > 60 mL/min (>60) Glucose Level 182 MG/DL (74-106) H Calcium Level 9.3 MG/DL (8.5-10.1) Current Medications Medications (Trade) Dose Ordered Sig/Uday Route PRN Reason Start Time Stop Time Status Last Admin Dose Admin Acetaminophen (Tylenol) 650 mg Q4H PRN ORAL fever 10/30/17 07:30 11/29/17 07:29 10/30/17 10:05 Al Hydroxide/Mg Hydroxide (Mylanta II) 30 ml Q6H PRN ORAL dyspepsia 10/30/17 07:30 11/29/17 07:29 Albuterol/ Ipratropium (Albuterol/ Ipratropium) 3 ml EVERY 4 HOURS PRN HHN Shortness of Breath 10/30/17 07:30 11/04/17 07:29 Aspirin (Ecotrin) 81 mg DAILY ORAL 11/02/17 09:00 12/02/17 08:59 11/02/17 08:21 Atorvastatin Calcium (Lipitor) 20 mg BEDTIME ORAL 11/01/17 21:00 12/01/17 20:59 11/01/17 21:45 Clonidine HCl (Catapres Tab) 0.1 mg Q4H PRN ORAL For High Blood Pressure 10/30/17 07:30 11/29/17 07:29 Dextrose (Dextrose 50%) 25 ml STAT PRN IV BS 60-69mg/dl 10/30/17 07:45 11/29/17 07:44 Dextrose (Dextrose 50%) 50 ml STAT PRN IV BS less than 60mg/dl 10/30/17 07:30 11/29/17 07:29 Heparin Sodium (Porcine) (Heparin 5000 units/ml) 5,000 units EVERY 12 HOURS SUBQ 10/30/17 09:00 11/29/17 08:59 11/02/17 08:23 Insulin Aspart (NovoLOG) BEFORE MEALS AND HS SUBQ 10/30/17 16:30 11/29/17 16:29 11/02/17 06:04 Lisinopril (Zestril) 10 mg DAILY ORAL 10/31/17 09:00 11/30/17 08:59 11/02/17 08:21 Lorazepam (Ativan 2mg/ml 1ml) 0.5 mg Q4H PRN IV For Anxiety 10/30/17 07:30 11/06/17 07:29 Meclizine HCl (Antivert) 25 mg Q6H PRN ORAL for dizziness 10/30/17 13:15 11/29/17 13:14 11/02/17 06:03 Meloxicam (Mobic) 7.5 mg Q12H PRN ORAL For Pain 10/31/17 07:15 11/30/17 07:14 Metformin HCl (Glucophage) 500 mg TWICE A DAY ORAL 10/31/17 09:00 11/30/17 08:59 11/02/17 08:22 Nitroglycerin (Ntg) 0.4 mg Q5M X 3 DOSES PRN SL Prn Chest Pain 10/30/17 07:30 11/29/17 07:29 Ondansetron HCl (Zofran) 4 mg Q6H PRN IVP Nausea & Vomiting 10/30/17 07:30 11/29/17 07:29 Polyethylene Glycol (Miralax) 17 gm HSPRN PRN ORAL Constipation 10/30/17 07:30 11/29/17 07:29 Promethazine HCl/ Codeine (Phenergan with Codeine) 5 ml Q4H PRN ORAL For Cough 10/30/17 07:30 11/29/17 07:29 Temazepam (Restoril) 15 mg HSPRN PRN ORAL Insomnia 10/30/17 07:30 11/06/17 07:29 Jodi Montenegro M.D. Nov 02, 2017 10:20
--- NOTE | 2017-11-02 11:30 | Consultation ---
DATE OF CONSULTATION: 11/02/2017 ENDOCRINOLOGY CONSULTATION CONSULTING PHYSICIAN: Donal Armando M.D. REFERRING PHYSICIAN: Christopher Miller D.O. HISTORY OF PRESENT ILLNESS: The patient is a 62-year-old male with past medical history of diabetes, presented with dizziness and spinning sensation and denies any numbness or tingling. The patient was brought by paramedics severely nauseated, had similar episode in the past, but this one is worse. PAST MEDICAL HISTORY: Diabetes. REVIEW OF SYSTEMS: As per HPI. FAMILY HISTORY: Noncontributory. SOCIAL HISTORY: No smoking, alcohol, or drug use. ALLERGIES TO MEDICATIONS: None. MEDICATIONS: As an outpatient, metformin, meclizine, lisinopril, meloxicam, and [place]-3 fatty acids. PHYSICAL EXAMINATION: VITAL SIGNS: Blood pressure is 129/78, pulse of 66, temperature of 97.5 degrees, and respiratory rate of 19. HEENT: Pupils are equal and reactive to light. Sclerae are anicteric. NECK: No JVD. HEART: Regular. LUNGS: Clear. ABDOMEN: Positive bowel sounds. Soft. EXTREMITIES: No clubbing, cyanosis, or edema. LABORATORY VALUES: WBC 16, hemoglobin 14, hematocrit 42, and platelets of 200,000. Sodium 139, potassium 3.9, chloride 104, bicarb 28, BUN 10, creatinine 1.0, glucose of 159, and A1c of 8.6. DIAGNOSES: 1. Ataxia and vertigo. 2. Diabetes. 3. Nausea and vomiting. PLAN: 1. We will hold on the metformin after the GI symptoms resolved. 2. NovoLog insulin sliding scale before meals and at bedtime. 3. Adjustment of the diabetic regimen according to blood glucose values. 4. I will follow the patient during hospital stay. Thank you, Dr. Miller, for the courtesy of this consultation. Donal Armando M.D. DR: THAD/ARIANNE JOB#: [id number] CC:
[2017-11-02 12:00] VITALS: BP 123/83
--- NOTE | 2017-11-02 12:58 | Pulmonology Progress Note ---
Assessment/Plan Problems: (1) Ataxia (2) Diabetes Assessment/Plan slightly better all reviewed MRI can not be done at this facility b/o pts weight. med/surg Subjective ROS Limited/Unobtainable: No Constitutional: Reports: no symptoms HEENT: Repors: no symptoms Respiratory: Reports: no symptoms Allergies: Coded Allergies: No Known Allergies (Unverified , 10/30/17) Objective Last 24 Hour Vital Signs Date Time Temp Pulse Resp B/P (MAP) Pulse Ox O2 Delivery O2 Flow Rate FiO2 11/02/17 12:00 98.1 73 18 123/83 97 Room Air 98.1 11/02/17 08:21 122/77 11/02/17 08:00 98.3 78 18 122/77 98 Room Air 98.3 11/02/17 08:00 78 11/02/17 04:00 97.5 66 19 129/78 98 Room Air 97.5 11/02/17 03:41 60 11/02/17 00:00 98.1 72 22 131/66 98 Room Air 98.1 11/02/17 00:00 61 11/01/17 20:00 96.6 78 20 125/70 98 Room Air 96.6 11/01/17 19:30 79 11/01/17 19:02 71 18 Room Air 21 11/01/17 16:00 97.5 84 20 138/77 98 Room Air 97.5 11/01/17 16:00 83 Intake and Output 11/01/17 11/02/17 19:00 07:00 Intake Total 800 ml Balance 800 ml Intake Oral 800 ml # Voids 2 2 # Bowel Movements 1 General Appearance: WD/WN HEENT: normocephalic, atraumatic Respiratory/Chest: chest wall non-tender, lungs clear Cardiovascular: normal peripheral pulses, normal rate Abdomen: normal bowel sounds, soft, non tender Genitourinary: normal external genitalia Extremities: no cyanosis Skin: no rash, no ulcers Laboratory Tests 11/02/17 06:50: White Blood Count 7.5, Red Blood Count 5.09, Hemoglobin 15.6, Hematocrit 45.9, Mean Corpuscular Volume 90, Mean Corpuscular Hemoglobin 30.6, Mean Corpuscular Hemoglobin Concent 34.0, Red Cell Distribution Width 11.3L, Platelet Count 219, Mean Platelet Volume 8.5, Neutrophils (%) (Auto) 51.7, Lymphocytes (%) (Auto) 36.5, Monocytes (%) (Auto) 7.8, Eosinophils (%) (Auto) 3.2H, Basophils (%) (Auto ) 0.8, Sodium Level 138, Potassium Level 3.7, Chloride Level 103, Carbon Dioxide Level 26, Anion Gap 9, Blood Urea Nitrogen 10, Creatinine 0.8, Estimat Glomerular Filtration Rate > 60, Glucose Level 182H, Calcium Level 9.3 Current Medications Medications (Trade) Dose Ordered Sig/Uday Route PRN Reason Start Time Stop Time Status Last Admin Dose Admin Acetaminophen (Tylenol) 650 mg Q4H PRN ORAL fever 10/30/17 07:30 11/29/17 07:29 10/30/17 10:05 Al Hydroxide/Mg Hydroxide (Mylanta II) 30 ml Q6H PRN ORAL dyspepsia 10/30/17 07:30 11/29/17 07:29 Albuterol/ Ipratropium (Albuterol/ Ipratropium) 3 ml EVERY 4 HOURS PRN HHN Shortness of Breath 10/30/17 07:30 11/04/17 07:29 Aspirin (Ecotrin) 81 mg DAILY ORAL 11/02/17 09:00 12/02/17 08:59 11/02/17 08:21 Atorvastatin Calcium (Lipitor) 20 mg BEDTIME ORAL 11/01/17 21:00 12/01/17 20:59 11/01/17 21:45 Clonidine HCl (Catapres Tab) 0.1 mg Q4H PRN ORAL For High Blood Pressure 10/30/17 07:30 11/29/17 07:29 Dextrose (Dextrose 50%) 25 ml STAT PRN IV BS 60-69mg/dl 10/30/17 07:45 11/29/17 07:44 Dextrose (Dextrose 50%) 50 ml STAT PRN IV BS less than 60mg/dl 10/30/17 07:30 11/29/17 07:29 Heparin Sodium (Porcine) (Heparin 5000 units/ml) 5,000 units EVERY 12 HOURS SUBQ 10/30/17 09:00 11/29/17 08:59 11/02/17 08:23 Insulin Aspart (NovoLOG) BEFORE MEALS AND HS SUBQ 10/30/17 16:30 11/29/17 16:29 11/02/17 11:50 Lisinopril (Zestril) 10 mg DAILY ORAL 10/31/17 09:00 11/30/17 08:59 11/02/17 08:21 Lorazepam (Ativan 2mg/ml 1ml) 0.5 mg Q4H PRN IV For Anxiety 10/30/17 07:30 11/06/17 07:29 Meclizine HCl (Antivert) 25 mg Q6H PRN ORAL for dizziness 10/30/17 13:15 11/29/17 13:14 11/02/17 06:03 Meloxicam (Mobic) 7.5 mg Q12H PRN ORAL For Pain 10/31/17 07:15 11/30/17 07:14 Metformin HCl (Glucophage) 500 mg TWICE A DAY ORAL 10/31/17 09:00 11/30/17 08:59 11/02/17 08:22 Nitroglycerin (Ntg) 0.4 mg Q5M X 3 DOSES PRN SL Prn Chest Pain 10/30/17 07:30 11/29/17 07:29 Ondansetron HCl (Zofran) 4 mg Q6H PRN IVP Nausea & Vomiting 10/30/17 07:30 11/29/17 07:29 Polyethylene Glycol (Miralax) 17 gm HSPRN PRN ORAL Constipation 10/30/17 07:30 11/29/17 07:29 Promethazine HCl/ Codeine (Phenergan with Codeine) 5 ml Q4H PRN ORAL For Cough 10/30/17 07:30 11/29/17 07:29 Temazepam (Restoril) 15 mg HSPRN PRN ORAL Insomnia 10/30/17 07:30 11/06/17 07:29 Cristian Mora MD Nov 02, 2017 12:58
--- NOTE | 2017-11-02 13:37 | General Progress Note ---
Assessment/Plan Problem List: (1) Vertigo ICD Codes: R42 - Dizziness and giddiness SNOMED: 181292737 (2) Diabetes ICD Codes: E11.9 - Type 2 diabetes mellitus without complications SNOMED: 53113210 (3) Ataxia ICD Codes: R27.0 - Ataxia, unspecified SNOMED: 11819168 (4) Dizziness of unknown cause ICD Codes: R42 - Dizziness and giddiness SNOMED: 056506309 Status: stable, progressing Assessment/Plan ot pt diet antivert cardio f/u cbc bmp am dc w hh if clear Subjective Constitutional: Reports: weakness Allergies: Coded Allergies: No Known Allergies (Unverified , 10/30/17) All Systems: reviewed and negative except above Subjective feels better Objective Last 24 Hour Vital Signs Date Time Temp Pulse Resp B/P (MAP) Pulse Ox O2 Delivery O2 Flow Rate FiO2 11/02/17 12:00 98.1 73 18 123/83 97 Room Air 98.1 11/02/17 08:21 122/77 11/02/17 08:00 98.3 78 18 122/77 98 Room Air 98.3 11/02/17 08:00 78 11/02/17 04:00 97.5 66 19 129/78 98 Room Air 97.5 11/02/17 03:41 60 11/02/17 00:00 98.1 72 22 131/66 98 Room Air 98.1 11/02/17 00:00 61 11/01/17 20:00 96.6 78 20 125/70 98 Room Air 96.6 11/01/17 19:30 79 11/01/17 19:02 71 18 Room Air 21 11/01/17 16:00 97.5 84 20 138/77 98 Room Air 97.5 11/01/17 16:00 83 Intake and Output 11/01/17 11/02/17 19:00 07:00 Intake Total 800 ml Balance 800 ml Intake Oral 800 ml # Voids 2 2 # Bowel Movements 1 Laboratory Tests 11/02/17 06:50: White Blood Count 7.5, Red Blood Count 5.09, Hemoglobin 15.6, Hematocrit 45.9, Mean Corpuscular Volume 90, Mean Corpuscular Hemoglobin 30.6, Mean Corpuscular Hemoglobin Concent 34.0, Red Cell Distribution Width 11.3L, Platelet Count 219, Mean Platelet Volume 8.5, Neutrophils (%) (Auto) 51.7, Lymphocytes (%) (Auto) 36.5, Monocytes (%) (Auto) 7.8, Eosinophils (%) (Auto) 3.2H, Basophils (%) (Auto ) 0.8, Sodium Level 138, Potassium Level 3.7, Chloride Level 103, Carbon Dioxide Level 26, Anion Gap 9, Blood Urea Nitrogen 10, Creatinine 0.8, Estimat Glomerular Filtration Rate > 60, Glucose Level 182H, Calcium Level 9.3 Height (Feet): 5 Height (Inches): 9.00 Weight (Pounds): 301 General Appearance: alert EENT: normal ENT inspection Neck: normal alignment Cardiovascular: normal peripheral pulses, normal rate, regular rhythm Respiratory/Chest: chest wall non-tender, lungs clear, normal breath sounds Abdomen: normal bowel sounds, non tender, soft Extremities: normal inspection Edema: no edema noted Arm (L), no edema noted Arm (R), no edema noted Leg (L), no edema noted Leg (R), no edema noted Pedal (L), no edema noted Pedal (R), no edema noted Generalized Neurologic: responsive, motor weakness Skin: normal pigmentation, warm/dry Christopher Miller DO Nov 02, 2017 13:37
[2017-11-02 16:00] VITALS: BP 122/69
--- NOTE | 2017-11-02 18:25 | Cardiology Progress Note ---
Assessment/Plan Assessment/Plan 1. Presyncope, cardiac work-up has been negative, normal EF, consider hydration. 2. DM, continue ASA and atorvastatin. 3. Dyslipidemia, continue atorvastatin. 4. HTN, well controlled, continue lisinopril. Subjective Subjective Sinus rhythm at 81. Objective Last 24 Hour Vital Signs Date Time Temp Pulse Resp B/P (MAP) Pulse Ox O2 Delivery O2 Flow Rate FiO2 11/02/17 12:00 98.1 73 18 123/83 97 Room Air 98.1 11/02/17 08:22 81 18 Room Air 21 11/02/17 08:21 122/77 11/02/17 08:00 98.3 78 18 122/77 98 Room Air 98.3 11/02/17 08:00 78 11/02/17 04:00 97.5 66 19 129/78 98 Room Air 97.5 11/02/17 03:41 60 11/02/17 00:00 98.1 72 22 131/66 98 Room Air 98.1 11/02/17 00:00 61 11/01/17 20:00 96.6 78 20 125/70 98 Room Air 96.6 11/01/17 19:30 79 11/01/17 19:02 71 18 Room Air 21 Intake and Output 11/01/17 11/02/17 19:00 07:00 Intake Total 800 ml Balance 800 ml Intake Oral 800 ml # Voids 2 2 # Bowel Movements 1 2D Echo: EF 65%, Mild TR, RVSP 31 mmHg Laboratory Tests Test 11/02/17 06:50 White Blood Count 7.5 K/UL (4.8-10.8) Red Blood Count 5.09 M/UL (4.70-6.10) Hemoglobin 15.6 G/DL (14.2-18.0) Hematocrit 45.9 % (42.0-52.0) Mean Corpuscular Volume 90 FL (80-99) Mean Corpuscular Hemoglobin 30.6 PG (27.0-31.0) Mean Corpuscular Hemoglobin Concent 34.0 G/DL (32.0-36.0) Red Cell Distribution Width 11.3 % (11.6-14.8) L Platelet Count 219 K/UL (150-450) Mean Platelet Volume 8.5 FL (6.5-10.1) Neutrophils (%) (Auto) 51.7 % (45.0-75.0) Lymphocytes (%) (Auto) 36.5 % (20.0-45.0) Monocytes (%) (Auto) 7.8 % (1.0-10.0) Eosinophils (%) (Auto) 3.2 % (0.0-3.0) H Basophils (%) (Auto) 0.8 % (0.0-2.0) Sodium Level 138 MMOL/L (136-145) Potassium Level 3.7 MMOL/L (3.5-5.1) Chloride Level 103 MMOL/L (98-107) Carbon Dioxide Level 26 MMOL/L (21-32) Anion Gap 9 mmol/L (5-15) Blood Urea Nitrogen 10 mg/dL (7-18) Creatinine 0.8 MG/DL (0.55-1.30) Estimat Glomerular Filtration Rate > 60 mL/min (>60) Glucose Level 182 MG/DL (74-106) H Calcium Level 9.3 MG/DL (8.5-10.1) Objective General Appearance: normal inspection, well appearing, no apparent distress, alert, GCS 15 Head: atraumatic, normocephalic, PERRLA, EOMI. Neck: Negative JVD Respiratory: normal inspection, lungs clear, normal breath sounds, no respiratory distress, no retraction, no wheezing Cardiovascular: regular rate, rhythm, no murmurs, gallops or rubs. Gastrointestinal: normal inspection, normal bowel sounds, non tender, soft, no guarding, no hernia Genitourinary: no CVA tenderness Musculoskeletal: no edema, clubbing or cyanosis. Neurologic: normal inspection, alert, oriented x3, responsive, glue spreader III-XII nml as tested, speech normal, other - abnormal finger to nose Psychiatric: normal inspection, judgement/insight normal, mood/affect normal Skin: normal inspection, normal color, no rash Hilton Daily MD Nov 02, 2017 18:25
[2017-11-02] MEDS ORDERED: TYLENOL EXTRA500 MG ORAL (19:18)
[2017-11-02] MEDS ORDERED: ASPIRIN-LOW81 MG ORAL (19:19)
[2017-11-02] MEDS ORDERED: CLONIDINE HCL0.1 MG PO (19:20)
[2017-11-02] MEDS ORDERED: LIPITOR20 MG ORAL (19:20)
[2017-11-02] MEDS ORDERED: NOVOLOG100 UNITS1 (19:21)
[2017-11-02] MEDS ORDERED: MECLIZINE HCL25 M1 ORAL (19:22)
[2017-11-02] MEDS ORDERED: MOBIC7.5 MG ORAL (19:23)
[2017-11-02] MEDS ORDERED: METFORMIN HCL5000 GM MC (19:25)
[2017-11-02] MEDS ORDERED: NITROSTAT0.4 M1 SL (19:26)
--- NOTE | 2017-11-03 12:46 | Discharge Summary ---
Discharge Summary Discharge Summary _ DATE OF ADMISSION: 10/30/2017 DATE OF DISCHARGE: 11/02/2017 REASON FOR ADMISSION: 62 years old male with past medical history significant for diabetes, hypertension, obesity, presented to emergency department with complaint of dizziness, unsteady gait and spinning sensation. Patient had a sense of movement which worse with his movement. He denied any numbness or tingling sensations. He denied any difficulty of speech. No focal weakness. Patient was also nauseated. Patient was have similar symptoms in the past, but at this time they appeared to be worse. Vital signs were stable; pulse oximetry was stable on room air, no fever, stable heart rate and blood pressure. Laboratory workup revealed no leukocytosis, stable hemoglobin and hematocrit , troponin negative, TSH within normal limits. Blood sugar - 294 , urinalysis revealed no evidence of urinary tract infection . EKG revealed sinus rhythm, no acute ischemic changes. Patient was admitted with diagnosis of ataxia with vertigo, diabetes mellitus CONSULTANTS: railroad signal and switch operator Dr. Daily pulmonary Dr. Mora ID specialist Dr. Childs paint and table edger Dr. Armando [facility]SE: Patient admitted to monitored floor. CT of the head revealed no acute intracranial pathology. Unable to do MRI of the brain due to patient weight. Assistant Softball Coach followed. Echocardiogram revealed preserved ejection fraction, telemetry showed no arrhythmia to account for presyncopal episode. Troponin was negative. Assistant Softball Coach recommended aspirin and statin that would be beneficial for this patient with diabetes. Lipid panel revealed borderline triglycerides 153 and LDL 104. Patient was educated on low-fat low- cholesterol cardiac diabetic diet. Aspirin and statin were initiated. Blood pressure was managed with current medication regimen and remained stable. Venous duplex bilateral lower extremity was negative for evidence of acute DVT.. Patient was started on meclizine on as needed basis , for possible benign positional vertigo. Supportive care provided, fall precautions maintained. Patient was working with physical and occupational therapists. Infectious disease specialist closely followed and stated that patient may have possible have vestibular neuritis , no evidence of current viral infection was noted. Infectious disease specialist recommended to keep patient off antibiotic and closely observed. Antivert was continued .o. Presto Log Operator closely followed, blood sugar was managed with sliding scale of insulin , metformin was on hold until GI symptoms resolved. Supportive care provided. Antiemetics provided as needed . DVT prophylaxis provided. Supplemental oxygen and pulmonary toilet were on board as needed, pulse oximetry was stable on room air. Patient was clinically improving , symptoms were gradually resolving . Patient was stable for discharge home with home health services to follow. MRI can be done as an outpatient if deem necessary. FINAL DIAGNOSES: Ataxia with dizziness Vertigo Presyncope Possible vestibular neuritis Presyncope Diabetes mellitus Hypertension DISCHARGE MEDICATIONS: See Medication Reconciliation list. DISCHARGE INSTRUCTIONS: Patient was discharged home with home health services to follow I have been assigned to dictate discharge summary for this account. I was not involved in the patient's management. Tiffany Monge NP Nov 03, 2017 12:46
--- NOTE | 2017-11-03 14:23 | Cardiology Report ---
APPROVED REPORT EKG Measurement Heart [id number] Normal sinus rhythm Normal ECG
== END 2017-11-02 19:50 | disposition home health service (06) | DRG 58 ==
LOC: EDBD 00:50 → EMR 01:09 → 2E 03:50 → EDBEDREQ 04:11 → 2E 18:18
DX: R27.0 Ataxia, unspecified (principal); E11.65 Type 2 diabetes mellitus with hyperglycemia; I10 Essential (primary) hypertension; R55 Syncope and collapse; H93.3X9 Disorders of unspecified acoustic nerve; M19.90 Unspecified osteoarthritis, unspecified site; R26.81 Unsteadiness on feet; E78.5 Hyperlipidemia, unspecified; E66.9 Obesity, unspecified; Z79.84 Long term (current) use of oral hypoglycemic drugs; Z68.41 Body mass index [BMI] 40.0-44.9, adult
CPT/HCPCS: 36415; 70450; 80048; 80053; 80061; 81001; 82140; 82962; 83036; 83735; 84100; 84443; 84484; 85025; 85610; 85730; 93005; 93306; 93880; 93970; 94664; 99285; J1815; J2405